=== PATIENT | male | born 2000 | race Caucasian/White ===

== ENCOUNTER 2020-09-02 01:46 | Emergency (ER) | payer BC ==
[2020-09-02] MEDS ORDERED: SODIUM CHLORIDE 0.9% 1,000 ML IV STA ×2 (02:07)
[2020-09-02 02:09] VITALS: TEMP 98.6
[2020-09-02 02:10] LABS: Glucose,Whole Blood 89 mg/dL (75-99)
--- NOTE | 2020-09-02 02:11 | ED ---
Chest Pain HPI - General Chief Complaint: Chest Pain Stated Complaint: Chest pain Time Seen by Provider: 09/02/20 02:03 Source: patient, family, RN notes reviewed, old records reviewed Mode of arrival: ambulatory Limitations: no limitations - History of Present Illness Initial Comments: Regan is 20-year-old male who presents emergency department today with his father with complaints of chest discomfort and left side rating towards his back starting 2 hours ago. Patient reports he was feeling nauseated and dizzy. When Patient arrives to emergency Department Patient had a syncopal episode while sitting in the chair at the triage [facility]. Patient quickly regained consciousness. He did not fall or hit head. Patient denies any previous cardiac history. Denies any family history of early cardiac . - Related Data Allergies Allergy/AdvReac Type Severity Reaction Status Date / Time No Known Allergies Allergy Verified 09/02/20 02:00 Review of Systems ROS Statement: Those systems with pertinent positive or pertinent negative responses have been documented in the HPI. ROS Other: All systems not noted in ROS Statement are negative. EKG Findings - EKG Comments: EKG Findings:: EKG performed at 2:02 AM shows normal sinus rhythm normal EKG. Ventricular rate of 76 bpm. WA interval 158 ms. QS duration is 100 ms. QT QTC 376/423 ms. Past Medical History Past Medical History: No Reported History History of Any Multi-Drug Resistant Organisms: None Reported Past Surgical History: No Surgical Hx Reported Past Psychological History: No Psychological Hx Reported Smoking Status: Vaper Past Alcohol Use History: None Reported Past Drug Use History: Marijuana General Exam - General Exam Comments Initial Comments: 20-year-old male. Alert and oriented. No distress. Limitations: no limitations General appearance: alert, in no apparent distress Head exam: Present: atraumatic, normocephalic, normal inspection Eye exam: Present: normal appearance, PERRL, EOMI. Absent: scleral icterus, conjunctival injection, periorbital swelling ENT exam: Present: normal exam, mucous membranes moist Neck exam: Present: normal inspection. Absent: tenderness, meningismus, lymphadenopathy Respiratory exam: Present: normal lung sounds bilaterally. Absent: respiratory distress, wheezes, rales, rhonchi, stridor Cardiovascular Exam: Present: regular rate, normal rhythm, normal heart sounds. Absent: systolic murmur, diastolic murmur, rubs, gallop, clicks GI/Abdominal exam: Present: soft, normal bowel sounds. Absent: distended, tenderness, guarding, rebound, rigid Extremities exam: Present: normal inspection, full ROM, normal capillary refill. Absent: tenderness, pedal edema, joint swelling, calf tenderness Back exam: Present: normal inspection Neurological exam: Present: alert, oriented X3, CN II-XII intact Psychiatric exam: Present: normal affect, normal mood Skin exam: Present: warm, dry, intact, normal color. 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 Stating he's feel well not dizzy. Denies chest pain at this time. Chest Pain MDM - [facility] 20-year-old male presents the ER today for evaluation for description of chest pain onset of radiation towards his back. He reports symptoms started 2 hours ago. Patient has no significant past medical history no family should cardiac disease. Patient was in emergency Department to triage. He did have a syncopal episode. Patient had extensive evaluation. EKG was reviewed and within normal limits. No evidence of ST changes. Chest x-ray reviewed and clear lungs and normal heart size. With concern for syncopal episode and chest discomfort Patient had CAT scan. CT chest QUIROZ for PE is negative for blood clots as well as normal aorta. I reevaluated the Patient needed to rest comfortably in bed and stating he was feeling better after IV fluids. He denied any further chest pain once arriving to the emergency department. Patient states informed of all results. Discussed he needs follow-up with primary care doctor for possible Holter monitoring or further testing. Since he denies any current chest pain and feels well after IV fluids discussed Patient can return home. I discussed to evaluate by PCP today or tomorrow. Patient understands treatment plan will comply. Discussed return parameters. Disposition Clinical Impression: Atypical chest pain, Episode of syncope Disposition: HOME SELF-CARE Condition: Good Instructions (If sedation given, give patient instructions): Chest Pain (ED) Additional Instructions: Patient advised to drink plenty of fluids rest, remain hydrated. Follow-up with primary care doctor within the next 1-2 days. Return to the emergency department if there is any further concerning symptoms Is patient prescribed a controlled substance at d/c from ED?: No Referrals: Devan Russell MD [Primary Care Provider] - 1-2 days Time of Disposition: 03:30
[2020-09-02 02:21] LABS: Basophils # (A) 0.1 k/uL (0-0.2); Basophils % (A) 0 %; Eosinophils # (A) 0.9 k/uL (0-0.7); Eosinophils % (A) 7 %; HCT 46.4 % (39.0-53.0); HGB 15.5 gm/dL (13.0-17.5); Lymphocytes % (A) 30 %; MCH 28.8 pg (25.0-35.0); MCHC 33.3 g/dL (31.0-37.0); MCV 86.3 fL (80.0-100.0); Mean Platelet Volume 7.8; Monocytes # (A) 0.8 k/uL (0-1.0); Monocytes % (A) 6 %; Neutrophils # (A) 7.6 k/uL (1.3-7.7); Neutrophils % (A) 56 %; Platelet Count 279 k/uL (150-450); RBC 5.38 m/uL (4.30-5.90); RDW 12.5 % (11.5-15.5); WBC 13.6 k/uL (4.0-11.0)
--- NOTE | 2020-09-02 02:28 | XR ---
EXAM: XR Chest, 2 Views CLINICAL HISTORY: ITS.REASON XR Reason: syncope TECHNIQUE: Frontal and lateral views of the chest. COMPARISON: No previous studies. FINDINGS: Lungs: The lungs are well aerated. Pleural space: Unremarkable. No pneumothorax. Heart: Cardiomediastinal silhouette unremarkable. Mediastinum: See above. Bones/joints: The ribs are within normal limits. Alignment of the thoracic spine is unremarkable. IMPRESSION: No active disease.
[2020-09-02 02:30] LABS: ALT 62 U/L (4-49); AST 33 U/L (17-59); African American GFR (CKD) >90 (>60 ml/min/1.73 sqM); Albumin 4.5 g/dL (3.5-5.0); Alkaline Phosphatase 70 U/L (38-126); Anion Gap 9 mmol/L; Blood Urea Nitrogen 12 mg/dL (9-20); Calcium 9.6 mg/dL (8.4-10.2); Carbon Dioxide 24 mmol/L (22-30); Chloride 106 mmol/L (98-107); Glucose 96 mg/dL (74-99); Non-African American GFR(CKD) >90 (>60 ml/min/1.73 sqM); Potassium 3.8 mmol/L (3.5-5.1); Sodium 139 mmol/L (137-145); Total Bilirubin 0.3 mg/dL (0.2-1.3); Total Protein 7.6 g/dL (6.3-8.2)
[2020-09-02 02:39] LABS: INR 0.9 (<1.2); Prothrombin Time 9.5 sec (9.0-12.0)
[2020-09-02 02:41] LABS: Partial Thromboplastin Time 20.4 sec (22.0-30.0)
[2020-09-02 02:53] LABS: Appearance,Urine Clear (Clear); Bilirubin,Urine Negative (Negative); Blood,Urine Negative (Negative); Color,Urine Yellow; Glucose,Urine (UA) Negative (Negative); Granular Casts,Urine 10 /lpf (0); Hyaline Casts,Urine 3 /lpf (0-2); Ketones,Urine Negative (Negative); Leukocyte Esterase,Urine Negative (Negative); Mucus,Urine Occasional /hpf; Nitrite,Urine Negative (Negative); Protein,Urine 1+ (Negative); RBC,Urine 1 /hpf (0-5); Specific Gravity,Urine 1.009 (1.001-1.035); Urobilinogen,Urine <2.0 mg/dL (<2.0); WBC,Urine 2 /hpf (0-5)
[2020-09-02 03:07] VITALS: BP 116/65; PULSE 86; RESP 16
--- NOTE | 2020-09-02 03:08 | CT ---
EXAM: CT Angiography Chest With Intravenous Contrast CLINICAL HISTORY: Dyspnea upon exertion. TECHNIQUE: Axial computed tomographic angiography images of the chest with intravenous contrast. CTDI is 46.484 mGy and DLP is 899.8 mGy-cm. This CT exam was performed using one or more of the following dose reduction techniques: automated exposure control, adjustment of the mA and/or kV according to patient size, and/or use of iterative reconstruction technique. MIP reconstructed images were created and reviewed. COMPARISON: 09/02/2020. FINDINGS: Pulmonary arteries: No central pulmonary embolism. No peripheral pulmonary emboli. Aorta: Thoracic aorta is unremarkable. No thoracic aortic aneurysm. Lungs: Evaluation of the left pulmonary parenchyma reveals minimal subsegmental atelectasis posteriorly. The airway is patent. No mass. Pleural space: Evaluation of the right pulmonary parenchyma reveals no pleural effusion. No pneumothorax. Heart: Heart is normal in size. No significant pericardial effusion. No evidence of RV dysfunction. Thyroid: Thyroid gland is unremarkable. Bones/joints: No acute fracture. No dislocation. Soft tissues: Unremarkable. Lymph nodes: Unremarkable. No enlarged lymph nodes. IMPRESSION: 1. No central or peripheral pulmonary emboli. 2. Thoracic aorta is unremarkable.
== END 2020-09-02 03:39 | disposition home or self-care (01) ==
LOC: EC 01:46
DX: R07.89 Other chest pain (principal); R55 Syncope and collapse; F17.290 Nicotine dependence, other tobacco product, uncomplicated
CPT/HCPCS: 36415; 93005; 85379; 80053; 83735; 84484; 85025; 85610; 85730; 81001; 71046; 71275; 99285; 96360; Q9967